=== PATIENT | male | born 1980 | race Caucasian/White ===

== ENCOUNTER 2019-09-02 16:33 | Emergency (ER) | payer OTHER ==
[~2019-09-02] VITALS: Ht 185.4 cm; Wt 131.7 kg
[~2019-09-02 16:33] MED LIST: AMOX400S2 PO; CHOL2000 PO; FLUT16SP24 NS; MONT10TA9 PO; OXYC10TA6 PO; SERT100T32 PO
--- NOTE | 2019-09-02 16:54 | NUR ---
PT BIB P/V WITH EXERTIONAL SOB FOR A FEW DAYS, DIAPHORETIC LAST NOC WITH A NEAR SYNCOPAL EVENT,NAUSEA. PT WAS TREATED FOR DVT AND ON ELIQUIS THAT WAS STOPPED 3 WEEKS AGO. PT DEIES ANY CP AND LEFT LEG WHERE DVT WAS HAS RETURNED TO NORMAL WITHOUT ANY PAIN. PT ON MONITOR , IV STARTED, AND BLOOD SENT TO THE LAB.
[2019-09-02] MEDS ORDERED: SODIUM CHLORIDE FLUSH 10ML SYR IVF ONE (17:00)
--- NOTE | 2019-09-02 17:00 | NUR ---
REPORT TO MAKSIM Kinsey FOR LUNCH BREAK.
[2019-09-02 17:03] LABS: BASOPHILS # (AUTO) 0.03 x10^3/uL (0-0.1); BASOPHILS % (AUTO) 0 % (0-1); EOSINOPHILS # (AUTO) 0.13 x10^3/uL (0-0.4); EOSINOPHILS % (AUTO) 2 % (1-7); LYMPHOCYTES # (AUTO) 2.41 x10^3/uL (1-3.4); LYMPHOCYTES % (AUTO) 33 % (22-44); MD NO; MEAN CORPUSCULAR HEMOGLOBIN 27.3 pg (27.5-34.5); MEAN CORPUSCULAR VOLUME 82.8 fL (81-97); MEAN PLATELET VOLUME 7.7 fL (7.4-10.4); MONOCYTES # (AUTO) 0.35 x10^3/uL (0.2-0.8); MONOCYTES % (AUTO) 5 % (2-9); NEUTROPHILS # (AUTO) 4.32 x10^3/uL (1.8-6.8); NEUTROPHILS % (AUTO) 60 % (42-75); PLATELET COUNT 302 x10^3/uL (130-400); RED BLOOD COUNT 5.35 x10^6/uL (4.38-5.82); RED CELL DISTRIBUTION WIDTH 14.1 % (9.4-14.8)
[2019-09-02 17:10] LABS: ANION GAP 4 mmol/L (5-15); CHLORIDE 105 mmol/L (98-107)
[2019-09-02 17:14] LABS: CREATININE 1.13 mg/dL (0.7-1.3)
[2019-09-02] MEDS ORDERED: OMNIPAQUE 350 MG/ML, 100ML BOTTLE ONE (17:55)
[2019-09-02 17:56] VITALS: BP 141/86
--- NOTE | 2019-09-02 17:57 | NUR ---
PT BACK FROM CT. WAITING FOR RESULTS.
== END 2019-09-02 18:22 | disposition home or self-care (01) ==
LOC: ED 18:14
DX: R06.00 Dyspnea, unspecified (principal); M79.662 Pain in left lower leg
CPT/HCPCS: 36415; 71275; 80048; 82040; 83880; 85025; 93005; 93971; 99284; Q9967

== ENCOUNTER 2020-01-26 15:32 | Outpatient (CLI) | payer OTHER ==
[~2020-01-26 15:32] MED LIST changes: +MONT10TA11 PO; -MONT10TA9 PO
== END 2020-01-26 23:59 | disposition home or self-care (01) ==
LOC: RAD 15:32
PROVIDERS: ATTEND Nurse Practitioner Family
DX: I82.402 Acute embolism and thrombosis of unspecified deep veins of left lower extremity (principal)